=== PATIENT | male | born 1975 | race Caucasian/White ===

== ENCOUNTER 2021-08-16 13:41 | Emergency (ER) | payer BC, SELFPAY ==
[2021-08-16 13:46] VITALS: BP 152/103; PULSE 95; RESP 16; TEMP 36.8; O2SAT 100
--- NOTE | 2021-08-16 14:13 | ED.EXTPRO ---
HPI - Extremity Problem General Chief complaint: Extremity Problem,Nontraumatic Stated complaint: R TOE/FOOT SWELLING Time Seen by Provider: 08/16/21 14:04 Source: patient and RN notes reviewed Mode of arrival: ambulatory Limitations: no limitations History of Present Illness HPI Narrative: Patient presents today complaining of an intermittent right foot pain x1 month with severe pain at the base of the right great toe x2 days. He describes this as a gout flare. He does have history of gout in the past. He is not on any maintenance medication. Reports that it is likely brought on by dehydration and increased stress. Currently rates his pain 06/27 and has been taking ibuprofen and elevating the foot without much relief. MD Complaint: extremity pain and extremity swelling Related Data Allergies Allergy/AdvReac Type Severity Reaction Status Date / Time No Known Allergies Allergy Unverified 06/09/15 10:48 Review of Systems Review of Systems: CONSTITUTIONAL: Denies body aches, fever, chills, or sweats. EYES: Denies visual changes, redness, or discharge. ENT: Denies rhinorrhea, congestion, sore throat, or otalgia. CARDIOVASCULAR: Denies chest pain, palpitations, or edema. RESPIRATORY: Denies cough or dyspnea. GASTROINTESTINAL: Denies abdominal pain, nausea, vomiting, or diarrhea. GENITOURINARY: Denies dysuria or hematuria. SKIN: Denies rash, itching, or wounds. MUSCULOSKELETAL: Denies back pain, or myalgia. + Right foot pain and swelling NEUROLOGIC: Denies headache, numbness, tingling, or weakness. PSYCH: Denies depression or anxiety. [facility] Family History Family History Other Family history of gout Social History Social History Smoking status: Never smoker Comments At time of signature, I have reviewed and agree with nursing past medical, surgical, social and family history unless otherwise noted. Please see nursing chart for further information. There is no relevant family history pertinent to the presenting complaint Exam Narrative: GENERAL: Well-appearing, well-nourished, and in no acute distress. HEAD: Normocephalic, atraumatic. EYES: EOMI. No redness or drainage. Conjunctivae normal. ENT: Mucous membranes pink and moist. NECK: Normal AROM. CHEST: No respiratory distress. EXTREMITIES: Right foot: Redness and mild edema from the base of the right great toe/MTP extending to the distal tip. Tenderness to same. Full AROM with increased pain. Distal sensation intact. Capillary refill normal. Pedal pulse normal. SKIN: Warm, dry, no rash. Capillary refill normal. Normal skin turgor. NEURO: No focal deficits. Alert and oriented x3. Gait steady. PSYCH: Normal affect. No signs of depression or anxiety. Course Vital Signs Vital signs: Vital Signs Temperature 98.2 F 08/16/21 13:46 Pulse Rate 95 08/16/21 13:46 Respiratory Rate 16 08/16/21 13:46 Blood Pressure 152/103 H 08/16/21 13:46 Pulse Oximetry 100 08/16/21 13:46 Temperature 98.2 F 08/16/21 13:46 Pulse Rate 95 08/16/21 13:46 Respiratory Rate 16 08/16/21 13:46 Blood Pressure 152/103 H 08/16/21 13:46 Pulse Oximetry 100 08/16/21 13:46 Reviewed. Pt has been instructed to follow up with his PCP regarding his elevated blood pressure today. MDM - Extremity (Nontraumatic) Differential Diagnosis Differential diagnosis: Likely gout and cellulitis Critical Care Time Critical Care Time Critical Care Time: No Discharge Plan Discharge Clinical Impression: Gout Qualifiers: Gout site: foot Gout etiology: unspecified cause Chronicity: acute Laterality: right Qualified Code(s): M10.9 - Gout, unspecified Patient Disposition: Home, Self-Care Condition: Stable Instructions: Low Purine Diet (ED), Gout (ED) Additional Instructions: Please take the prednisone and colchicine as prescribed. Continue
== END 2021-08-16 14:27 | disposition home or self-care (01) ==
PROVIDERS: Emergency Provider Nurse Practitioner
DX: M10.9 Gout, unspecified (principal)
CPT/HCPCS: 99203; G0463

== ENCOUNTER 2021-11-18 07:49 | Outpatient (CLI) | payer BC, SELFPAY ==
--- NOTE | 2021-11-24 10:20 | WPDHOMESLEEP ---
Sleep Study - Home Unattended Date of Study: 11/18/21 Ordering Provider: Lissette Pace DO Interpreting Provider: Ariana Del Rio MD Home Sleep Study Type: Apnea Link Air Height: 1.75 m Weight: 88.451 kg Body Mass Index: 28.8 Neck Circumference (inches): 17.5 [place]: 12 Reason for Sleep Study Hypersomnolence, poor quality sleep Sleep History Sam iVera is a 46-year-old man with excessive snoring with night sweats. This has been going on for longer than 2 years. There is a family history of sleep disorders with his mother having loud snoring. He frequently awakens from sleep feeling short of breath as well as waking with heartburn, belching or coughing. His snoring is always loud enough that others complain about it. He rarely has trouble sleeping with a cold. He frequently wakes up gasping for breath at night. He constantly has breathing problems at night observed by others with constant excessive sweating at night. He does not notice his heart pounding or beating irregularly at night. He frequently falls asleep during the day, rarely falls asleep involuntarily and never falls asleep while driving. He does not have loss of muscle tone with strong emotion. He rarely has daytime difficulties due to excessive sleepiness. He does not feel paralyzed on waking or falling asleep nor does he have vivid dreamlike scenes upon awakening or falling asleep. He does not feel afraid to go to sleep. He rarely has nightmares. He frequently remembers his dreams. He rarely has racing thoughts. He rarely feels sad, depressed or anxious. He occasionally has muscular tension. He occasionally notices parts of his body jerking. He frequently kicks at night. He does not have crawling or aching feelings in his legs. He occasionally has leg pain during the night. He does not have morning jaw pain. He frequently grinds his teeth during sleep. He is not bothered by pain during the day. He is not awakened by pain during the night. He occasionally wakes up feeling stiff in the morning with sore achy muscles or pain in the neck and spine. Normal bedtime is 10:30 p.m. falling asleep quickly, waking 1-2 times at night to urinate, and is able to return to sleep within 5-10 minutes. He wakes the morning by 6:00 a.m.. He estimates getting 7 hours of sleep at night. On the weekends his bedtime is 11:00 p.m. and his wake-up time is 7:00 a.m.. 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 He does not generally take naps in the afternoon or evening. A short nap may be refreshing. He feels better in the evening compared to other times of day. Habits: He never smoked tobacco. Caffeine 1 Pepsi per day. Alcohol 1 drink per month. No recreational drugs. [facility] Past Medical History Medical History (Updated 11/24/21 @ 12:04 by Ariana Del Rio MD) Broken ankle Right Broken ribs 2007 Collar bone fracture Gout Family History Family History (Updated 10/22/21 @ 08:46 by Lori Tellez CMA) Father Diabetes mellitus Hypertension Gout Mother Hypertension Grandparent Diabetes mellitus Hypertension Gout Other Family history of gout Social History Social History (Updated 10/22/21 @ 09:10 by Lissette Pace DO) Smoking status: Never smoker Alcohol intake: current Alcohol use details: 1-2 drinks/month Substance use: never Medications Home Medications Medication Instructions Recorded Confirmed Type allopurinol 100 mg tablet 100 mg PO DAILY #60 tablet 10/26/21 Rx Sleep Procedure This test was performed using 4 channel monitoring including respiratory effort channel, snoring channel, heart rate channel, and oxygen saturation channel. This study was scored using CMS guidelines. Sleep Architecture Not applicable for home sleep test. Respiratory Analysis The recording duration is 8 hours 6 minutes. The evaluation duration is 7 hours and 54 minutes. The apnea h
[2021-11-24 14:09] VITALS: BMI 28.8
== END 2021-11-21 10:11 | disposition home or self-care (01) ==
LOC: ANHCSM 07:51
PROVIDERS: PCP Family Medicine; Visit Provider Family Medicine
DX: G47.33 Obstructive sleep apnea (adult) (pediatric) (principal); G47.10 Hypersomnia, unspecified
CPT/HCPCS: 95806

== ENCOUNTER 2022-07-21 08:19 | Emergency (ER) | payer BC, SELFPAY ==
--- NOTE | ~2022-07-21 | XR_ITS ---
XR ankle LT min 3V, XR foot LT min 3V 07/21/2022 08:48 Indication: Left foot and ankle pain after fall from ladder Procedure: 4 views left ankle and 4 views left foot Comparison: No prior studies for comparison. Findings: There is moderate soft tissue swelling of the ankle. There is a possible fracture of the ta chauncey. Recommend correlation with CT. Lisfranc joint intact. No other fracture identified. Impression: 1: Possible nondisplaced fracture of the talus. Correlation with CT recommended. Reviewed, dictated and finalized at location A. Impression: 1: Possible nondisplaced fracture of the talus. Correlation with CT recommended . Impression: 1: Possible nondisplaced fracture of the talus. Correlation with CT recommended .
[2022-07-21 08:25] VITALS: BP 139/89; PULSE 76; RESP 16; TEMP 37.2; O2SAT 98
--- NOTE | 2022-07-21 08:31 | ED.LOWEXIN ---
HPI - Extremity Injury (Lower) General Chief Complaint: Extremity Injury, Lower Stated Complaint: INJURED L ANKLE Time Seen by Provider: 07/21/22 08:31 Source: patient and RN notes reviewed History of Present Illness HPI Narrative: Patient is a 46-year-old male who presents the urgent care with complaints of left foot and ankle pain and swelling. Patient states that he was in [place] helping his mother with her cane prep on Wednesday, slipped off a ladder falling onto his left foot. Patient has been ambulating with crutches, elevated and using Tylenol/ibuprofen as needed. States that he did not have the the time to be seen at an earlier date and wanted to wait until he got back into town. No other acute complaints or injuries from the fall. No acute distress noted. Patient aware of the plan of care. Some parts of this dictation were generated by voice recognition software and may contain typographical and/or grammatical inaccuracies. Related Data Allergies Allergy/AdvReac Type Severity Reaction Status Date / Time No Known Allergies Allergy Verified 12/31/21 08:22 Review of Systems Review of Systems: CONSTITUTIONAL: Denies fever, chills, or sweats. EYES: Denies visual changes, redness, or discharge. ENT: Denies rhinorrhea, congestion, sore throat, or otalgia. CARDIOVASCULAR: Denies chest pain, palpitations, or edema. RESPIRATORY: Denies cough or dyspnea. GASTROINTESTINAL: Denies abdominal pain, nausea, vomiting, or diarrhea. GENITOURINARY: Denies dysuria or hematuria. SKIN: Denies rash or itching. MUSCULOSKELETAL: Reports of pain and swelling to the left ankle and foot NEUROLOGIC: Denies headache, numbness, or weakness. All other systems reviewed are negative, except as documented in HPI. [facility] Past Medical History Medical History Broken ankle Right Broken ribs 2007 Collar bone fracture Gout Family History Family History Father Diabetes mellitus Hypertension Gout Mother Hypertension Grandparent Diabetes mellitus Hypertension Gout Other Family history of gout Social History Social History Smoking status: Never smoker Alcohol intake: current Alcohol use details: 1-2 drinks/month Substance use: never Comments At the time of my signature, I reviewed and agree with the nursing past medical, surgical, social, and family history. There is no relevant family history pertinent to the patient complaint. Exam Narrative: GENERAL: This is a well-nourished, well-developed patient, in no apparent distress. HEAD: normocephalic, atraumatic. EYES: PERRL. Sclera clear/white. Vision is grossly intact. EARS: External ears normal NOSE: External nose normal with no obvious nasal discharge, nares without redness, no rhinorrhea. THROAT: Mucous membranes moist NECK: Neck supple SKIN: warm, intact with no suspicious lesions or rash, good texture and turgor. NEURO: awake, alert, and oriented to person, place and time. There were no obvious focal neurologic abnormalities. EXTREMITIES: Moderate edema/ecchymosis and tenderness to the left lateral and medial malleolus as well as the left medial foot. Range of motion to left lower extremity not tested due to pain/swelling. Positive strong left pedal pulse with capillary refill less than 2 seconds. Course Course Level of Care: Express Care Visit Vital Signs Vital signs: Vital Signs Temperature 98.9 F 07/21/22 08:25 Pulse Rate 76 07/21/22 08:25 Respiratory Rate 16 07/21/22 08:25 Blood Pressure 139/89 07/21/22 08:25 Pulse Oximetry 98 07/21/22 08:25 Oxygen Delivery Room Air 07/21/22 08:25 Temperature 98.9 F 07/21/22 08:25 Pulse Rate 76 07/21/22 08:25 Respiratory Rate 16 07/21/22 08:25 Blood Pressure 139/89 07/21/22 08:25 Pulse Oximetry 98 07/21/22 08:25
== END 2022-07-21 09:22 | disposition home or self-care (01) ==
PROVIDERS: Emergency Provider Nurse Practitioner Family; PCP Family Medicine
DX: S93.402A Sprain of unspecified ligament of left ankle, initial encounter (principal); S96.912A Strain of unspecified muscle and tendon at ankle and foot level, left foot, initial encounter; S92.102A Unspecified fracture of left talus, initial encounter for closed fracture; S93.602A Unspecified sprain of left foot, initial encounter; W11.XXXA Fall on and from ladder, initial encounter; M10.9 Gout, unspecified
CPT/HCPCS: 73610; 73630; 99214; G0463